=== PATIENT | female | born 1930 | race Caucasian/White ===

== ENCOUNTER 2018-12-27 05:35 | Day surgery (SDC) | payer MEDICARE, BC ==
[2018-12-24 12:15] VITALS: BMI 22.4
[~2018-12-27 05:35] MED LIST: HEPARIN SODIUM,PORCINE 5,000 UNIT/ML 1 ML VIAL SQ ONE; ceFAZolin IN SWFI 2 GM/20 ML SYRINGE IVP ONE
[2018-12-27] MEDS ORDERED: LIDOCAINE 1% 20 ML VIAL (10MG/ML) FOR IV START INTRADERMA PRN (05:54)
[2018-12-27] MEDS ORDERED: ONDANSETRON 4 MG/2 ML VIAL IVP ONE (05:54)
[2018-12-27] MEDS ORDERED: DEXAMETHASONE SOD PHOSPHATE 10 MG/ML 1 ML VIAL IV ONE (05:54)
[2018-12-27] MEDS ORDERED: SCOPOLAMINE 1.5MG/72HR PATCH TRANSDERM ONE (05:54)
[2018-12-27] MEDS ORDERED: HYDROmorphone 0.5 MG/0.5 ML SYRINGE IVP PRN (05:54)
[2018-12-27] MEDS ORDERED: LACTATED RINGERS 1,000 ML IV SCH (06:00)
--- NOTE | 2018-12-27 07:00 | P.GSHP ---
History of Present Illness H&P Date: 12/27/18 CHIEF COMPLAINT: History of left groin pain. HISTORY OF PRESENT ILLNESS: Lorin Shukla is an 88-year-old female who reported that in December of this year, now 9 months ago, she had fallen and broke her left hip. She had emergency surgery in [place]. Separately, she reports left groin pain, especially worse with standing up and walking. She reports occasional constipation. There is no blood in her stools. She reports being fairly healthy. She has had multiple implants, including shoulder and left hip implant. She also had a right shoulder repair. She also had a previous laparoscopic cholecystectomy. As a result of her increased left groin pain, she presents for further evaluation. She also reports intermittent swelling of the left groin. PAST MEDICAL HISTORY: Please see list. PAST SURGICAL HISTORY: Please see list. MEDICATIONS: Please see list. ALLERGIES: Please see list. SOCIAL HISTORY: No illicit drug use FAMILY HISTORY: No reports of Crohn disease or ulcerative colitis. REVIEW OF ORGAN SYSTEMS: Additionally reports: GI: Denies any blood in stools. Reports occasional constipation. CONSTITUTIONAL: No fevers or chills. HEENT: Denies any trouble with vision, hearing or nosebleeds. No difficulty swallowing. LYMPHATIC: The patient denies any lumps and bumps around the neck. ENDOCRINE: Denies any blood sugar glucose intolerance. History of hypothyroidism. On hormonal therapy. RESPIRATORY: Denies pneumonia. Denies any troubles with breathing or dyspnea on exertion. CARDIOVASCULAR: Denies any chest pain, palpitations, or recent heart attacks. GASTROINTESTINAL: Denies fatty food intolerance. Denies change in bowel habits and gas bloat. GENITOURINARY: Denies any blood in urine or increased urinary frequency. MUSCULOSKELETAL: Has back pain, stiffness or joint arthritis. NEUROLOGIC: Denies any numbness or tingling along the distal extremities. No seizure disorders or headaches. PSYCHIATRIC: Denies any depression or suicidal ideation. HEMATOLOGIC: Denies any abnormal bleeding or bruising. BREASTS: Denies any breast lumps, pain or nipple discharge. SKIN: No current skin cancer. No rash. PHYSICAL EXAM: VITAL SIGNS: Stable Patient is an 88-year-old female. Vital signs: T: 98.6 degrees. P: 75, R: 16, BP: 154/84, Ht: 55, Wt: 135 lbs. Abdomen: Palpated pinpoint tenderness of the left groin. No skin changes noted. GENERAL: Well developed and in no acute distress. Pleasant. HEENT: No sclera icterus. Extraocular movements grossly intact. Moist buccal mucosa. Head is atraumatic, normocephalic. Hears conversational speech. No nasal drainage. NECK: Supple without lymphadenopathy. No JV distention. CHEST: Non-labored respirations and equal bilateral excursions. CARDIOVASCULAR: Regular rate and rhythm. Palpable 2+ radial pulses. MUSCULOSKELETAL: No clubbing, cyanosis or edema. NEUROLOGIC: No focal or lateralizing signs. PSYCH: Appropriate affect. Alert and oriented to person, place and time. SKIN: Well perfused. Good skin turgor. ASSESSMENT: 1. History of left inguinal hernia. 2. Hypothyroidism. PLAN: 1. Overall, she presents intermediate risk for any potential complications regarding robotic left inguinal hernia repair with mesh with possibility of bilateral. Past Medical History Past Medical History: Hyperlipidemia, Hypertension, Thyroid Disorder History of Any Multi-Drug Resistant Organisms: None Reported Past Surgical History: Appendectomy, Back Surgery, Cholecystectomy, Orthopedic Surgery Additional Past Surgical History / Comment(s): left hip pined, rt shoulder repair Past Anesthesia/Blood Transfusion Reactions: No Reported Reaction Past Psychological History: No Psychological Hx Reported Additional Psychological History / Comment(s): claustrophobic Smoking Status: Never smoker Past Alcohol Use History: Daily Additional Past Alcohol Use History / Comment(s): one glass of wine with dinner Past Drug Use History: None Reported - Past Family History Son(s) Family Medical History: Cancer Additional Family Medical History / Comment(s): tongue Medications and Allergies Home Medications Medication Instructions Recorded Confirmed Type Aspirin [Adult Low Dose Aspirin EC] 81 mg PO DAILY 12/24/18 12/24/18 History Cholecalciferol [Vitamin D3] 1,000 unit PO DAILY 12/24/18 12/24/18 History Levothyroxine Sodium [Synthroid] 75 mcg PO QAM 12/24/18 12/24/18 History Multivitamin [Multivitamins Adult 1 each PO DAILY 12/24/18 12/24/18 History Gummies] Raloxifene [Evista] 60 mg PO DAILY 12/24/18 12/24/18 History Allergies Allergy/AdvReac Type Severity Reaction Status Date / Time meperidine [From Demerol] Allergy BP dropped Verified 12/24/18 11:56 Surgical - Exam Vital Signs Temp Pulse Resp BP Pulse Ox 98 F 73 18 202/95 99 12/27/18 06:32 12/27/18 06:32 12/27/18 06:32 12/27/18 06:32 12/27/18 06:32
[2018-12-27] MEDS ORDERED: fentaNYL (PF) 50 MCG/ML 2 ML AMP IV ONE (07:13)
[2018-12-27] MEDS ORDERED: MIDAZOLAM 2 MG/2 ML VIAL IV ONE (07:13)
[2018-12-27] MEDS ORDERED: ROPIVACAINE 5 MG/ML 30 ML VIAL ONE (07:43)
[2018-12-27] MEDS ORDERED: GLYCOPYRROLATE 0.2 MG/ML 2 ML VIAL ONE (07:43)
[2018-12-27] MEDS ORDERED: NEOSTIGMINE 1 MG/ML 10 ML VIAL ONE (07:43)
[2018-12-27] MEDS ORDERED: PHENYLEPHRINE-0.9% NACL SYG 1 MG/10 ML SYRINGE ONE (07:43)
[2018-12-27] MEDS ORDERED: SUCCINYLCHOLINE CHLORIDE 100 MG/5 ML SYR IV ONE (07:43)
[2018-12-27] MEDS ORDERED: fentaNYL (PF) 50 MCG/ML 2 ML AMP ONE (07:43)
[2018-12-27] MEDS ORDERED: LIDOCAINE 1% INJ 10MG/ML (20 ML MDV) ONE (07:43)
[2018-12-27] MEDS ORDERED: VECURONIUM 10 MG VIAL IV ONE (07:43)
[2018-12-27] MEDS ORDERED: PROPOFOL 10 MG/ML 20 ML VIAL IV ONE (07:43)
[2018-12-27] MEDS ORDERED: BUPIVACAIN-EPI 0.25%-1:200,000 30 ML VIAL SQ ONE (08:07)
[2018-12-27 09:06] VITALS: TEMP 97.1
--- NOTE | 2018-12-27 09:06 | P.OP ---
Date of Procedure: 12/27/18 Description of Procedure: SURGEON: EUFEMIA WELCH MD PREOPERATIVE DIAGNOSES: 1. History of left inguinal swelling and pain 2. Hypothyroidism 3. Hyperlipidemia POSTOPERATIVE DIAGNOSES: 1. History of left inguinal swelling and pain 2. Hypothyroidism 3. Hyperlipidemia 4. Left inguinal incarcerated hernia, direct, 4 x 3 cm OPERATION: 1. Robotic assisted da Eli Xi laparoscopic left inguinal hernia repair with ventralight ST mesh, 11.4 cm. ANESTHESIA: General with local anesthetic ESTIMATED BLOOD LOSS: 5 mL. SPECIMENS REMOVED: None. COMPLICATIONS: None. INDICATIONS: The patient is a 88-year-old female who presents with history of left-sided pain. Now she presents for definitive surgical intervention. Laparoscopic versus open and robotic approaches were discussed. Benefits and risks including bleeding, infection, and chronic groin pain were reviewed. Placement of mesh was also described. Informed consent was obtained. DESCRIPTION: In the preoperative area, the patient was marked with indelible marker along the left groin. The patient was brought to the operating room and initially laid in supine position. After general induction, the abdomen had been prepped and draped in standard sterile fashion. Ioban draping was also placed. Prior to incision, a timeout protocol was confirmed with surgical team regarding patient's name including procedures to be performed and location along the left groin. Initial positioning for the robotic assisted ports were selected whereby 20 cm superior to the target anatomy, 0 degree 5 mm laparoscopic trocar entry was performed at the left upper quadrant. The abdomen was insufflated to 15 mmHg which she had tolerated well. Diagnostic laparoscopy demonstrated a defect along the left groin. No defects were identified along the right groin. Next, along the epigastrium, 8 mm robot trocar was placed. An 8-mm robotic trocar was placed under direct visualization at the right upper quadrant. The 5 mm port was exchanged for a 8 mm trocar. All trocars were positioned 10-cm apart from each other. The [employer] robot was primed, draped, prepared for docking along the left side of the patient. I then went to the [employer] console. The regulatory assistant was at bedside for exchange of the robot arms and equipment. At the left groin, the peritoneum was scored over the 4 cm defect. The hernia sac was evaginated whereby the peritoneum was scored using Endo scissors with cautery. Once completely reduced into the abdominal cavity, the peritoneal sac of the hernia was stripped. The sac was resected and then passed off for further pathological analysis. The size of the hernia defect was 4 cm with intraoperative films obtained. Using a 2-0 VLOC, the peritoneal defect of the left inguinal hernia site was closed using a pursestring suture. The defect was found to be completely closed with complete reduction of the left inguinal hernia was confirmed. As an onlay, an 11.[address] mesh by [employer] was cut in half and entered into the abdominal cavity via the 8 mm trocar. The mesh was tacked to the pelvis using 2-0 VLOC x 12-inch length sutures. The robot was undocked from the patient's bedside. I then rescrubbed into the case. The specimen was removed from the abdominal cavity from the left upper quadrant port site. Insufflation was released from the abdominal cavity and all instruments were removed from the abdominal cavity. The rest of incisions were reapproximated using 4-0 Monocryl in a running subcuticular fashion. Incisions were cleansed using dilute hydrogen peroxide. Liquid glue was applied to the skin. At the end of the procedure, the needle, sponge and instrument counts had been verified correct by the medical surgical tech. The patient had tolerated the procedure well and was taken to the postanesthesia care unit in stable condition. Intraoperative findings were described to the patient's family. FINDINGS: 1. Large incarcerated initial direct left inguinal hernia, 4 x 3 cm, Nyhus type III 2. Console time 25 minutes. Plan - Discharge Summary Discharge Rx Participant: Yes New Discharge Prescriptions: New HYDROcodone/APAP 5-325MG [[place] 5-325] 1 tab PO Q4HR PRN 3 Days #18 tab PRN Reason: Pain Ibuprofen [Motrin] 600 mg PO Q8HR PRN #20 tab PRN Reason: Pain No Action Cholecalciferol [Vitamin D3] 1,000 unit PO DAILY Raloxifene [Evista] 60 mg PO DAILY Levothyroxine Sodium [Synthroid] 75 mcg PO QAM Multivitamin [Multivitamins Adult Gummies] 1 each PO DAILY Aspirin [Adult Low Dose Aspirin EC] 81 mg PO DAILY Discharge Medication List Aspirin [Adult Low Dose Aspirin EC] 81 mg PO DAILY 12/24/18 [History] Cholecalciferol [Vitamin D3] 1,000 unit PO DAILY 12/24/18 [History] Levothyroxine Sodium [Synthroid] 75 mcg PO QAM 12/24/18 [History] Multivitamin [Multivitamins Adult Gummies] 1 each PO DAILY 12/24/18 [History] Raloxifene [Evista] 60 mg PO DAILY 12/24/18 [History] HYDROcodone/APAP 5-325MG [[place] 5-325] 1 tab PO Q4HR PRN 3 Days #18 tab [Rx] Ibuprofen [Motrin] 600 mg PO Q8HR PRN #20 tab 12/27/18 [Rx] Follow up Appointment(s)/Referral(s): Eufemia Welch MD [STAFF PHYSICIAN] - 01/01/19 Patient Instructions/Handouts: Laparoscopic Herniorrhaphy (IP), Inguinal Hernia Repair (DC) Activity/Diet/Wound Care/Special Instructions: May shower. No bathtub soaks. No lifting over 4 pounds in 4 weeks.
[2018-12-27 09:17] VITALS: RESP 16
--- NOTE | 2018-12-27 10:42 | P.ONQ ---
Anesthesiology Proc Note - PNB - Peripheral Nerve Block Performed Bilateral Transversus Abdominis Single Procedure Start Time: 07:15 Procedure Stop Time: :25 Indication: Acute Post-Operative Pain, Analgesia, Requested by physician Sedation Type: Sedate with meaningful contact maintained Preparation: Sterile Prep Position: Supine Catheter: None Needle Types: On-Q Needle Size: 50mm (2") Needle Gauge: 21 Technique: Ultrasound Injectate: Other (see comment) (0.375% ropivacaine 20cc b/l) Blood Aspirated: No Pain Paresthesia on Injection Noted: No Resistance on Injection: Normal Events: Uneventful and Well Tolerated
[2018-12-27 11:05] VITALS: BP 127/58; PULSE 59
== END 2018-12-27 11:50 | disposition home or self-care (01) ==
LOC: OR 05:35
PROVIDERS: ATTEND Surgery Plastic and Reconstructive Surgery
DX: K40.30 Unilateral inguinal hernia, with obstruction, without gangrene, not specified as recurrent (principal); E78.5 Hyperlipidemia, unspecified; I10 Essential (primary) hypertension; E03.9 Hypothyroidism, unspecified; F40.240 Claustrophobia; Z79.82 Long term (current) use of aspirin; Z79.890 Hormone replacement therapy; Z79.899 Other long term (current) drug therapy; Z88.5 Allergy status to narcotic agent; Z90.49 Acquired absence of other specified parts of digestive tract
CPT/HCPCS: 64488; 88302; 49650; C1781; J2250; J1644; J1100; J2710; J2405; J2001; J3010; J2795; J2370; J0330; J2704; J0690